=== PATIENT | male | born 1955 | race American Indian/Alaskan Native ===

== ENCOUNTER 2022-08-07 08:04 | Day surgery (SDC) | payer MEDICARE, OTHER, SELFPAY ==
--- NOTE | 2022-08-07 | PATH_ITS ---
[facility] Accession Number: [id number] No. of containers..02 Tissue . 01 Material submitted: . PART A: colon - HEPATIC FLEXURE PART B: colon - CECAL MASS BIOPSY . 01 Diagnosis: A. Hepatic Flexure, Biopsy: Tubular adenoma. . B. Cecal Mass, Biopsy: At least high-grade dysplasia, worrisome for unsampled malignancy; please see comment. MRV 08/09/2022 1438 Local . 01 Comment: B. Sections are of tubular adenoma with high-grade dysplasia evidenced by a cribriform architecture and loss of nuclear polarity. Though no definitive invasive adenocarcinoma is seen in the sampled material, luminal necrosis is present and raises the possibility of unsampled malignancy. Correlation with endoscopic and imaging findings to determine if this is associate sales representative, complete removal of the lesion, and close clinical followup are recommended. . As part of routine quality assurance auditor, Dr. Uriostegui has reviewed part B of this case, and agrees with the diagnosis of at least high-grade dysplasia. . 01 Electronically signed: . Sebastian Jacques MD, PhD, Pathologist NPI- [id number] . 01 Gross description: . Part A: HEPATIC FLEXURE: Received in formalin are 2 fragment(s) of howell, soft tissue measuring 0.6 x 0.5 x 0.5 cm to 0.7 x 0.3 x 0.3 cm submitted entirely in 1 cassette(s) Part B: CECAL MASS BIOPSY: Received in formalin are 3 fragment(s) of howell, soft tissue measuring 0.1 x 0.1 x 0.1 cm to 0.3 x 0.3 x 0.2 cm submitted entirely in 1 cassette(s) /YAYA 08/08/2022 1922 Local . 01 Pathologist provided ICD-10: R93.3, D12.3, D12.0 . 01 CPT . 153960, 573590 Specimen Comment: A courtesy copy of this report has been sent to [phone] Performed at: 01 [facility] [address] [place] [address], [place], [place] [id number] MD Colt Roa MD Phone: [phone]
[2022-08-07 08:30] VITALS: BMI 27.8
[2022-08-07 08:35] VITALS: BP 109/66; PULSE 57; RESP 20; TEMP 36.6; O2SAT 97
[2022-08-07] MEDS: LACTATED RINGERS 1,000 ML 42 ML IV (08:58)
--- NOTE | 2022-08-07 09:06 | PM.HP.1 ---
History of Present Illness History of Present Illness Date Patient Seen: 08/07/22 Time Patient Seen: 09:06 Chief complaint: Dx Colonoscopy Narrative: Personal history of colon polyps. Abnormal imaging. [facility] Social History household members: spouse Smoking Status: Never smoker alcohol intake: never Meds Home Medications and Allergies Allergies Allergy/AdvReac Type Severity Reaction Status Date / Time No Known Drug Allergies Allergy Verified 08/07/22 08:21 Review of Systems Review of Systems ROS: Yes All systems reviewed with the patient and are negative except as otherwise documented Exam Vital Signs (past 8 hours): - 08/07/22 08:35 Temperature 97.9 F Pulse Rate 57 L Respiratory Rate 20 Blood Pressure 109/66 Pulse Oximetry 97 Oxygen Delivery Method Room Air Oxygen Delivery Method Room Air Const General: cooperative HENMT Head: normal to inspection Eyes General: appearance normal, both eyes and all related structures Neck Neck: normal visual inspection Chest Chest: normal inspection of the chest Resp Effort & Inspection: normal respiratory effort Cardio Rate: regular rate GI Inspection: normal to inspection Skin General: no rashes or lesions noted Neuro General: patient alert and patient awake Extrem General: normal to inspection and no pedal edema Psych Appearance: grossly normal Assessment & Plan Assessment & Plan narrative: 67-year-old male with personal history of colon polyps and abnormal imaging concerning for cecal mass lesion. Colonoscopy is pursued today.
--- NOTE | 2022-08-07 09:07 | PM.PREOP ---
Pre-operative Note Interval Note History & Physical reviewed/Exam performed by Physician: Yes Changes to H&P: No ASA Class (for procedural sedation): II
--- NOTE | 2022-08-07 10:13 | P.OP.COLON_ITS ---
Operative Date/Time/Diagnoses Date of procedure: 08/07/22 Time of procedure: 10:14 Pre-op diagnosis: Abnormal imaging, personal history of colon polyps. Post-op diagnosis: same Procedure & Clinicians Study performed: Colonoscopy with hot snare polypectomy cold snare polypectomy and biopsies. Same procedure as scheduled: Yes Indications: Abnormal imaging, personal history of colon polyps. Surgeon: Cameron Albarran Procedure Notes SCOAP/Timeout: Done Procedure in detail: After the risks and benefits were explained, written and verbal informed consent was obtained. The patient was brought into the procedure room and placed into the left lateral decubitus position. Please see anesthesia notes for sedation details. Digital rectal examination was accomplished. The scope was introduced into the patient and advanced under direct visualization to the cecum as identified by the appendiceal orifice and ileocecal valve. The scope was slowly withdrawn to carefully examine the mucosa for any defects or lesions. Comp rehensive imaging was accomplished throughout the rectum including the dentate line. The colon was decompressed, the scope was then removed from the patient who tolerated the procedure well. Bowel prep poor Adult colonoscope Scope withdrawal time: 10 minutes Sedation minutes: 21 Complications: none Impression: Prep conditions were suboptimal. There were several areas throughout the colon obscured by fibrous retained stool debris. At the hepatic flexure there was an approximately 7-8 mm sessile polyp removed with hot snare and a diminutive 3-4 mm polyp removed with cold snare. There were a number of sessile polyps associated with the ileocecal valve. There was an additional ulcerated fungating irregular mass lesion identified filling up the lumen of the cecum. Multiple biopsies of this cecal mass were acquired. I could quite easily identify the ileocecal valve and therefore did not feel compelled to place a tattoo. I did visualize a tattoo that has obviously previously been placed at prior colonoscopies. This was in the left colon likely near the splenic flexure but has nothing to do with the mass lesion. Endoscopic diagnosis 1. Cecal mass lesion 2. Multiple colon polyps Post-procedure Plan for aftercare: 1. Await histopathology. 2. CEA level will be requested 3. Updated CT imaging will be requested. 4. Surgery and Oncology consultation are recommended. Disposition: PACU
[2022-08-07 10:17] VITALS: BP 87/62; PULSE 69; RESP 14; TEMP 36.2; O2SAT 96
[2022-08-07 10:21] VITALS: BP 90/62; PULSE 72; RESP 20; O2SAT 97
--- NOTE | 2022-08-07 10:24 | SUR.PHASEII ---
Pt to wait with spouse in conference room for conversation with
[2022-08-07 10:28] VITALS: BP 98/71; PULSE 51; RESP 16; O2SAT 98
== END 2022-08-07 10:39 | disposition home or self-care (01) ==
PROVIDERS: PCP Nurse Practitioner; Referring Provider Internal Medicine Gastroenterology; Visit Provider Internal Medicine Gastroenterology
PROC: 0DJD8ZZ Inspection of Lower Intestinal Tract, Via Natural or Artificial Opening Endoscopic (ICD-10-PCS; CPT 45378; principal; 2022-08-07 09:30)
DX: Z12.11 Encounter for screening for malignant neoplasm of colon (principal); Z86.010 Personal history of colon polyps; R93.3 Abnormal findings on diagnostic imaging of other parts of digestive tract; K86.3 Pseudocyst of pancreas; D12.3 Benign neoplasm of transverse colon; D12.0 Benign neoplasm of cecum
CPT/HCPCS: 45385; 45380; J2704

== ENCOUNTER → 2022-08-16 11:45 | Outpatient (CLI) | payer MEDICARE, OTHER, SELFPAY ==
[2022-08-16 12:24] LABS: Add Manual Diff / Slide Review NO; Basophils Absolute Auto 0 /uL (0-100); Basophils Percent Auto 0.7 % (0-2); Eosinophils Absolute Auto 200 /uL (0-450); Eosinophils Percent Auto 3.3 % (2-4); Hematocrit 34.5 % (41-53); Hemoglobin 11.4 g/dL (13.5-17.5); Lymphocytes Absolute Auto 1000 /uL (1100-4500); Lymphocytes Percent Auto 20.5 % (25-40); Mean Corpuscular Hemoglobin 27.6 PG (26-34); Mean Corpuscular Volume 83.6 fL (80-100); Monocytes Absolute Auto 300 /uL (0-900); Monocytes Percent Auto 6.5 % (3-14); Neutrophils Absolute Auto 3500 /uL (1500-7000); Platelet Count 277 X10^3/uL (150-400); Red Blood Cell Count 4.12 X10^6/uL (4.5-5.9); Red Cell Distribution Width 15.1 % (11.6-14.8)
[2022-08-16 13:00] LABS: Alanine Aminotransferase 22 IU/L (<50); Albumin Globulin Ratio 1.1 (1.0-2.8); Alkaline Phosphatase 121 U/L (38-126); Aspartate Aminotransferase 24 IU/L (17-59); BUN Creatinine Ratio 8.7 (6-22); Bilirubin Total 0.4 mg/dL (0.2-1.3); Blood Urea Nitrogen 8 mg/dL (9-20); Calcium 8.2 mg/dL (8.4-10.2); Carbon Dioxide 26 mmol/L (22-32); Chloride 106 mmol/L (98-107); Estimated Glomerular Filt Rate > 60 mL/min (>60); Globulin 3.8 g/dL (1.7-4.1); Glucose 104 mg/dL (80-110); HEMOLYSIS < 15 (0-50); Lipase 99 U/L (23-300); Potassium 3.6 mmol/L (3.4-5.1); Sodium 140 mmol/L (137-145); Total Protein 7.8 g/dL (6.3-8.2)
== END ==
PROVIDERS: PCP Nurse Practitioner; Referring Provider Surgery; Visit Provider Surgery
DX: K63.89 Other specified diseases of intestine (principal)
CPT/HCPCS: 36415; 80053; 82378; 83690; 85025; 99214

== ENCOUNTER → 2022-08-18 12:51 | Outpatient (CLI) | payer MEDICARE, OTHER, SELFPAY ==
--- NOTE | 2022-08-18 12:53 | DI.CT.S_ITS ---
PROCEDURE: CT CHEST ABD PEL W CON INDICATIONS: Cecal mass TECHNIQUE: After the administration of oral and intravenous contrast, axial sections acquired from the supraclavicular neck to the pubic symphysis. Coronal and sagittal reformats were performed. For radiation dose reduction, the following was used: automated exposure control, adjustment of mA and/or kV according to patient size. COMPARISON: None. FINDINGS: Image quality: Good. CHEST: Lower Neck: No enlarged lymph nodes. Thyroid: Within normal limits. Axillae: No enlarged lymph nodes. Chest Wall: Probable left gynecomastia. Lungs and Airways: Left cardiophrenic angle nodule measuring 0.8 cm, (5/215). Mild atelectasis. Airways are clear. Pleura: No pneumothorax or pleural effusions. Heart: Heart size is normal. No pericardial effusion. Thoracic Vessels: The aorta and pulmonary arteries demonstrate normal size. Mediastinum and Laura: No enlarged lymph nodes. Esophagus: No wall thickening. No hiatal hernia. ABDOMEN: Liver: Multiple hepatic cysts. Enhancing focus at the dome of the liver, (2/41). Gallbladder: Distended. Biliary ducts: Intrahepatic and extrahepatic biliary ductal dilatation. The extrahepatic duct measures approximately 1.9 cm. Pancreas: Atrophic. Nodular tissue in the region of the expected head of the pancreas. There are 1 or 2 trans gastric stents extending from the gastric body to the region of the tail the pancreas. There is stranding in the region of the pancreas. Spleen: No splenomegaly. Adrenal Glands: No nodule. Kidneys and Ureters: No hydronephrosis. Stomach and Bowel: Suspected cecal mass measures approximately 3.6 cm in length, (3/29). The appendix is dilated up to 1.6 cm. Diverticulosis. No small bowel obstruction. Stomach is decompressed. Peritoneum: No abnormal intraperitoneal fluid. No free air. Ventral Wall: No hernia. Abdominal Nodes: Suspicious in pericecal lymph nodes. For example a node with a short axis diameter 1.1 cm, (2/72); and 1 cm, (2/70). Vessels: No abdominal aortic aneurysm. The portal vein is attenuated near the SMV confluence. There are upper abdominal varices. Celiac and SMA are patent. Hepatic artery is replaced to the SMA. IVC is diminutive. PELVIS: Pelvic Organs: Prostatomegaly. Right bladder diverticulum. Bladder: Unremarkable. Pelvic Nodes: No enlarged lymph nodes. Miscellaneous: Bilateral fat containing inguinal hernias. Bones: No suspicious lesion. IMPRESSION: 1. Suspected cecal mass measures approximately 3.6 cm in length. Suspicious pericecal lymph nodes. 2. Numerous hepatic cysts. Tiny enhancing focus at the dome of the liver. MRI should be considered for further evaluation to exclude metastatic disease in the liver. 3. Left lower lobe pleural nodule measuring 0.8 cm. Indeterminate. Recommend follow-up chest CT in 6 months. 4. Atrophic pancreas with adjacent transgastric drains. Stranding about the pancreas. Findings most consistent with prior pancreatitis. Portal vein confluence is attenuated. Multiple varices in the upper abdomen. 5. Prostatomegaly. Suspect bladder outlet obstruction with bladder diverticulum. Dictated by: Derek Pace M.D. on 08/18/2022 at 16:35 Approved by: Derek Pace M.D. on 08/18/2022 at 16:58
== END ==
PROVIDERS: PCP Nurse Practitioner; Referring Provider Surgery; Visit Provider Surgery
DX: K63.89 Other specified diseases of intestine (principal); K76.89 Other specified diseases of liver; R91.1 Solitary pulmonary nodule; K86.89 Other specified diseases of pancreas; I86.8 Varicose veins of other specified sites; N40.0 Benign prostatic hyperplasia without lower urinary tract symptoms; N32.3 Diverticulum of bladder
CPT/HCPCS: 71260; 74177; Q9967

== ENCOUNTER 2022-09-19 06:12 | Inpatient (IN) | payer MEDICARE, OTHER, SELFPAY ==
[2022-09-13 08:43] VITALS: BMI 27.8
[2022-09-19] VITALS (24 sets, daily range): BP systolic 101–128; BP diastolic 56–78; PULSE 57–101; RESP 12–19; TEMP 36.4–36.8; O2SAT 92–99; BMI 27.8
--- NOTE | 2022-09-19 | PATH_ITS ---
[facility] Accession Number: [id number] No. of containers..02 Tissue . 01 Material submitted: . PART A: liver - LIVER LESION PART B: colon - RIGHT COLON,TERMINAL ILEUM, AND APPENDIX . 01 Diagnosis: A. Liver Lesion, Biopsy: Benign sclerotic nodule, 5 mm. Negative for cirrhosis/regenerative nodules on trichrome stain. No evidence of malignancy. Additional step sections examined. . B. Right Colon with Appendix, Right Hemicolectomy: Invasive adenocarcinoma; see cancer case summary and comment. . . CANCER CASE SUMMARY - COLON AND RECTUM Specimen Procedure: Right hemicolectomy. Tumor Tumor site: Cecum, ileocecal valve, appendix, and terminal ileum. Histologic type: Adenocarcinoma. Histologic grade: G2, moderately differentiated. Tumor size: 7.2 cm in greatest dimension. Multiple primary sites: Not applicable. Tumor extent: Invades through muscularis propria into pericolonic tissue. Macroscopic tumor perforation: Not identified. Lymphovascular invasion: Present (not otherwise specified). Perineural invasion: Not identified. Treatment effect: No known presurgical therapy. Margins Margin status for invasive carcinoma: All margins negative for invasive carcinoma. Closest margin to invasive carcinoma: Radial/circumferential. Distance from invasive carcinoma to closest margin: 1 mm. Margin status for noninvasive tumor: All margins negative for dysplasia. . Regional lymph nodes Regional lymph node status: Regional lymph nodes present. Tumor present in regional lymph nodes. Number of lymph nodes with tumor: Two. Number of lymph nodes examined: Eight. Tumor deposits: Present. Number of tumor deposits: Two. Pathologic stage classification (pTNM, AJCC 8th Edition) TNM descriptors: Not applicable. PT category: pT3 PN category: pN1b Additional findings: Adenomas. Special studies: . IMMUNOHISTOCHEMISTRY TESTING FOR MISMATCH REPAIR PROTEINS: . MLH1: Intact nuclear expression. MSH2: Intact nuclear expression. MSH6: Intact nuclear expression. PMS2: Intact nuclear expression. Background nonneoplastic tissue/internal control with intact nuclear expression. . INTERPRETATION: No loss of nuclear expression of MMR proteins: low probability of microsatellite instability-high (MSI-H)* . * There are exceptions to the above IHC interpretations. These results should not be considered in isolation, and clinical correlation with genetic counseling is recommended to assess the need for germline testing. MRV 09/28/2022 [facility]0 Local . 01 Comment: Multiple areas of serosal adhesion are identified grossly. Carcinoma is present approximating (within 1 mm) the areas of interest, but no carcinoma is identified at the inked surface. By convention this is staged as pT3. . As part of routine vendor quality supervisor, Dr. Uriostegui has reviewed retail account representative sections (blocks A1 and B5), and agrees with the diagnosis above. . 01 Electronically signed: . Sebastian Jacques MD, PhD, Pathologist NPI- [id number] . 01 Gross description: . A. Received in formalin, labeled with the patient's name, , and liver lesion, and consists of two irregular, roughened, friable, howell soft tissue fragments with no grossly identifiable margin. The first measures 1.7 x 1.0 x 0.5 cm and is inked black. The second fragment measures 0.7 x 0.6 x 0.3 cm and is inked orange. The first fragment is serially sectioned, and the specimen is submitted entirely in cassettes A1-A2. B. Received in formalin, labeled with the patient's name, , and R colon, terminal ileum, appendix, and consists of a right hemicolectomy with a fragment of ileum measuring 7.6 cm in length by 2.6 cm in average diameter. The segment of colon measures 14.9 cm in length by 5.5 cm in average diameter with attached adipose extending out to 4.8 cm. The attached appendix is congested and measures 5.9 cm in length by 2.2 cm in average diameter. The ileal and colonic serosa is howell and smooth with no areas of puckering grossly identified. The serosa of the appendix is diffusely hemorrhagic. An area of firm adipose is identified at the approximate area of the ileocecal valve. The ileal margin is inked blue. The colonic margin is inked black. The mesenteric margin is inked green. The appendiceal serosa and area of firm adipose is inked orange. An area of roughened adipose adjacent to the cecum is identified and is inked red. A roughened area on the serosa is identified on the ileum measuring 3.2 cm in greatest dimension and is inked black (this area is distinct and separate from the black-inked colonic margin). Opening the specimen reveals the lumen to be filled with bright red, gelatinous, hemorrhagic material. The mucosa is significant for a exophytic, ulcerated lesion within the cecum and is also identified within the appendix. The lesion measures 7.2 cm from the cecum into the appendix and 6.4 x 4.6 cm within the cecum. The friable lesion grossly extends beyond the bowel wall to the edge of the orange-inked adipose. The lesion grossly approximates the green-inked mesenteric margin adjacent to the ileocecal valve. The lesion grossly extends from the cecum, through the adjacent adipose, and is visualized in the mucosa of the ileum. The lesion is grossly free from the blue-inked ileal margin and the black-inked colonic margin. The lesion measures 0.6 cm from the red-inked roughened area consistent with cecal adhesion to the abdominal wall and measures 2.5 cm from the black-inked roughened area of presumed adhesion on the ileum. The lesion also grossly extends into the ileocecal valve. The remaining colonic mucosa is significant for four exophytic polypoid structures ranging from 0.7 cm to 2.1 cm in greatest dimension and grossly free from all margins. The mucosa is also significant for a dusky, ill-defined area measuring approximately 4.5 x 3.5 cm and is located 1.5 cm from the nearest colonic margin, possibly consistent with previous biopsy sites. Otherwise, the mucosa is howell and velvety with slightly edematous folds. The mcrae average 0.3 cm thick with no diverticula grossly identified. Palpation of the adipose reveals 15 howell lymph node candidates ranging from 0.1 cm to 1.1 cm in greatest dimension. Line Closer sections are submitted as follows: B1: Ileal margin en face. B2: Colon margin en face. B3-B6: Composite longitudinal section from cecum to tip of the appendix. B7: Lesion to orange-inked surface. B8-B9: Composite lesion from colon to ileum. B10: Lesion to red-inked area of adhesion. B11: Perpendicular lesion to green-inked mesenteric margin. B12: Lesion to normal. B13: Lesion to ileocecal valve. B14-B16: Single retail account representative sections of four mucosal polyps. B17: Dusky serosa. B18: Normal ileum and black-inked adhesed area. B19: Line Closer normal ileocecal valve. B20-B21: Normal colon. B22: Section of single lymph node candidate. B23: Section of four distinct lymph node candidates. B24: Three intact lymph node candidates. B25: Three intact lymph node candidates. B26: Four intact lymph node candidates. ([id number]) /FRR 09/28/2022 1715 Local . 01 Microscopic: . A. A trichrome stain is performed to evaluate for fibrosis, and highlights rare bridging fibrosis without regenerative nodules/cirrhosis identified. The presence of bridging type fibrosis can be seen in subcapsular liver, and may also be explained by mass effect. The sclerotic nodule is reactive on trichrome stainn, consistent with a fibrotic nodule. A control stain shows appropriate reactivity. . B. DNA mismatch repair proteins show intact nuclear immunoreactivity. Controls stains show appropriate reactivity. . * This test was developed and its performance characteristics determined by [employer]. It has not been cleared or approved by the U.S. Food and Drug Administration. The FDA has determined that such clearance or approval is not necessary. This test is used for clinical purposes. It should not be regarded as investigational or for research. . 01 Pathologist provided ICD-10: C18.9 . 01 CPT . 885856, 502636, A99549, V04308, 043178 Specimen Comment: A courtesy copy of this report has been sent to [phone] Performed at: 01 [facility] [address] [place] [address], [place], [place] [id number] MD Colt Roa MD Phone: [phone]
[2022-09-19] MEDS: LACTATED RINGERS 1,000 ML 42 ML IV ×4 (07:11→12:17)
--- NOTE | 2022-09-19 07:50 | P.HP_ITS ---
History of Present Illness History of Present Illness Date Patient Seen: 09/19/22 Time Patient Seen: 07:51 Chief complaint: Right Lap Hemicolectomy Narrative: Bo is a 67-year-old man with a right colon mass. See the office note for details. Path came back as high-grade dysplasia but there is concern for invasive adenocarcinoma. 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 He has had an endoscopic cyst gastrostomy. He is here for his right hemicolectomy. 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) Surgical History (Updated 09/13/22 @ 09:05 by Clara Blair RN) H/O gastrostomy, has currently (04/2022) Hx of colonoscopy (08/07/22) Family History (Updated 08/25/22 @ 23:56 by Margo Reyes MD) Brother Cancer Social History household members: spouse Smoking Status: Never smoker alcohol intake: current Meds Home Medications and Allergies Home Medications Medication Instructions Recorded Confirmed Type No Known Home Medications 08/16/22 09/13/22 History Allergies Allergy/AdvReac Type Severity Reaction Status Date / Time No Known Drug Allergies Allergy Verified 09/19/22 06:55 Exam Vital Signs (past 8 hours): - 09/19/22 07:05 Temperature 97.9 F Pulse Rate 57 L Respiratory Rate 12 Blood Pressure 102/69 Pulse Oximetry 97 Oxygen Delivery Method Room Air Oxygen Delivery Method Room Air Const General: comfortable and No acute distress Assessment & Plan Assessment and plan (1) High grade dysplasia in colonic adenoma: Status: Acute Plan We reviewed the plan of laparoscopic assisted right hemicolectomy. Explained that there is a possibility we would have to convert to an open procedure if he has a lot of adhesions from his pancreatitis. There is also possibility that we would have to perform a diverting loop ileostomy if he has poor perfusion. He would like to proceed.
[2022-09-19] MEDS: AMPICILLIN/SULBACTAM 3 GM 3 GM in SODIUM CHLORIDE 0.9% 100 ML IV (07:58)
[2022-09-19] MEDS: ACETAMINOPHEN IV 1,000 MG/100 ML VIAL 400 MG IV (08:06)
--- NOTE | 2022-09-19 08:28 | SUR.OPER ---
Supine on padded OR bed, head on pillow, right arm secured on padded arm board at <90 degrees abduction, left arm padded and tucked at side, legs uncrossed, safety belt at thigh, tape over blanket over lower legs. [place] Pad Positioner under torso.
[2022-09-19] MEDS: BUPIVACAINE LIPOSOME 266 MG/20 ML VIAL INJ (08:36)
[2022-09-19] MEDS: EPINEPHrine 1 MG/ML 0.15 MG INJ (08:37)
[2022-09-19] MEDS: BUPIVACAINE 0.5% (PF) 10 ML VIAL 30 ML INJ (08:38)
--- NOTE | 2022-09-19 13:08 | P.OP_ITS ---
Operative Date/Time/Diagnoses Date of procedure: 09/19/22 Time of procedure: 13:08 Pre-op diagnosis: Right colon mass Post-op diagnosis: same Procedure & Clinicians Procedure: Laparoscopic-assisted right hemicolectomy and liver biopsy Same procedure as scheduled: Yes Surgeon: Carlos Berrios Diesel Mechanic Construction: Cm Lopez Anesthesia Type: General Operative Notes Procedure in detail: Operation: Laparoscopic assisted right hemicolectomy and lysis of adhesions Surgeon: Mary LEWIS Diesel Mechanic Construction: Cm ELIZABETH provided assistance with exposure as well as creation of the anastomosis. Anesthesia: General endotracheal anesthesia The patient is a 67-year-old man who had a right colon mass that was biopsied by Dr. Albarran with findings of high-grade dysplasia concern for invasive cancer. He was consented for a laparoscopic assisted right hemicolectomy. Unasyn was administered. The patient was brought to the operating room and placed on the table in the supine position. General endotracheal anesthesia was induced. A Albarado catheter was placed. The abdomen was prepped and draped in the usual fashion and a time-out was performed. A 1 cm supraumbilical midline incision was created. Dissection was carried down to the fascia which was scored in the midline with cautery. The peritoneum was pierced with a Peon clamp. A Sheba port was placed and the abdomen was insufflated to 15 mmHg. The camera was inserted and there was no evidence of any injury from the entry. 5 mm ports were placed in the left upper quadrant, left lower quadrant, right upper quadrant, right lower quadrant and subxiphoid position under direct vision. We explored the abdomen. There were rather significant adhesions of the omentum to the upper midline abdominal wall which were taken down under direct vision with hot scissors. There was evidence that there was a rather large mass in the cecum which was adherent to the anterior abdominal wall. The appendix appeared quite dilated. There was a 2 cm circular white mass along the lateral inferior edge of the right liver. We started by dissecting the cecum from the attachments to the anterior abdominal wall by removing the peritoneum with the specimen. The terminal ileum was adherent to the right lower pelvic sidewall and was carefully dissected staying in the natural cleavage plane. We dissected until we had good mobilization of the terminal ileum. We then took down the omental adhesions to the gallbladder fossa until we could clearly see 1st portion the duodenum. We carefully dissected the right transverse mesocolon off of duodenum staying in the natural cleavage plane. The tissue planes were rather distorted presumably because of the patient's prior history of pancreatitis. There was also a lot of neovascularization around the right colon. We then took down the hepatic flexure and the right colon in the same plane. We then mobilized the cecum and the mesentery to the terminal ileum off of the sidewall. Once the bowel was sufficiently mobilized we removed the laparoscopic equipment and created a 7 cm supraumbilical incision. A medium Bishnu retractor was placed into the wound however we could not completely extract the specimen because of the bulkiness of the cecal mass so we increased the incision to 9 cm and used a large Bishnu. We then were able to exteriorize the mass. It appeared that there were some large palpable lymph nodes in the mesentery. We then created mesenteric windows along the mesenteric border of terminal ileum and another along the proximal transverse colon just proximal to right branch of the middle colic artery. We then lined up the terminal ileum and transverse colon and a 3-0 silk stitch was placed at the crotch. Blue towels were placed around the bowel and enterotomies were created. A [id number] functional end-to-end anastomosis was created using the 75 mm linear AD stapler with blue loads. The power seal was used to take down most of the mesentery up to the ileocolic pedicle. The ileocolic pedicle was tied with 2 0 silk ties. Multiple interrupted 3-0 silk sutures were used to imbricate the anastomotic staple line. The anastomosis appeared well perfused and patent and allowed to fall back into the right abdomen. We then removed the liver lesion with a combination of hot scissors and the power seal device and sent it as ?liver lesion?. We then transition to a clean closure and injected Exparel into the plane above and below the fascia. The fascia was then closed with a running 0 PDS suture. The skin incisions were closed with krzysztof. EBL: 50 mL Specimen: Terminal ileum and right colon and liver lesion Post-operative Condition: stable Disposition: PACU
[2022-09-19] MEDS: LACTATED RINGERS 1,000 ML 100 ML IV ×2 (14:23→18:19)
[2022-09-19] MEDS: ACETAMINOPHEN 325 MG TABLET 650 MG PO (17:11)
[2022-09-19] MEDS: IBUPROFEN 600 MG TABLET PO (17:12)
[2022-09-19 19:02] LABS: MRSA (Nasal) PCR Not Detected (Not Detect)
[2022-09-19] MEDS: HYDROCODONE/ACET 5/325 TABLET 1 TAB PO (20:09)
[2022-09-19] MEDS: HYDROCODONE/ACET 5/325 TABLET 2 TAB PO (23:49)
[2022-09-20] VITALS (10 sets, daily range): BP systolic 111–133; BP diastolic 61–73; PULSE 68–80; RESP 16–18; TEMP 36.6–37; O2SAT 89–95
[2022-09-20] MEDS: LACTATED RINGERS 1,000 ML 100 ML IV ×2 (04:21→12:01)
[2022-09-20 05:03] LABS: Add Manual Diff / Slide Review NO; Basophils Absolute Auto 0 /uL (0-100); Eosinophils Absolute Auto 0 /uL (0-450); Hematocrit 29.2 % (41-53); Hemoglobin 9.7 g/dL (13.5-17.5); Lymphocytes Absolute Auto 700 /uL (1100-4500); Lymphocytes Percent Auto 6.3 % (25-40); Mean Corpuscular HGB Conc 33.1 % (30-36); Mean Corpuscular Hemoglobin 26.4 PG (26-34); Mean Corpuscular Volume 79.8 fL (80-100); Monocytes Absolute Auto 800 /uL (0-900); Monocytes Percent Auto 7.1 % (3-14); Neutrophils Absolute Auto 9800 /uL (1500-7000); Neutrophils Percent Auto 86.6 % (50-75); Platelet Count 213 X10^3/uL (150-400); Red Blood Cell Count 3.66 X10^6/uL (4.5-5.9); Red Cell Distribution Width 16.5 % (11.6-14.8); White Blood Cell Count 11.3 X10^3/uL (4.5-11.0)
[2022-09-20 05:12] LABS: BUN Creatinine Ratio 14.5 (6-22); Blood Urea Nitrogen 11 mg/dL (9-20); Calcium 7.7 mg/dL (8.4-10.2); Carbon Dioxide 27 mmol/L (22-32); Chloride 106 mmol/L (98-107); Estimated Glomerular Filt Rate > 60 mL/min (>60); Glucose 124 mg/dL (80-110); HEMOLYSIS < 15 (0-50); Potassium 3.8 mmol/L (3.4-5.1); Sodium 138 mmol/L (137-145)
[2022-09-20] MEDS: HYDROCODONE/ACET 5/325 TABLET 2 TAB PO ×3 (08:24→21:14)
--- NOTE | 2022-09-20 09:18 | CM.DANOTE ---
DCP: Patient is a 67yo M here post op from colon surgery. Payer: Medicare and for Life PCP: Dr. Lacey Garcia From nurse, patient is walking around and doing well. They are hopeful they will be able to advance his diet later today. Potentially dc tomorrow if all goes well. POCKET MAKER entered room and introduced self and role. Patient was A/Ox4 and was resting. Patient reported he lives at home in [place] with his , Aspen ([phone]). Patient reports he is independent with ADLs at baseline and drives his own vehicle. 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 Patient reports that his is able to help him with extra needs he may have while recovering. She is able to transport him home from . Plan: patient will d/c home when medically stable and transport with in POV. CM team will continue to follow for additional needs. COLIN Galdamez. Discharge Planning/Care Management CM Discharge Assessment Start: 09/20/22 09:16 Freq: Status: Active Protocol: Document 09/20/22 09:16 (Rec: 09/20/22 09:18 [id number]) Discharge Planning Assessment Assigned Resident Caregiver COLIN Galdamez DPOA/Assigned Designee Name Aspen Demarco () Contact Information [phone] Advance Directives? No History Provided By Patient,Medical Record Prior Living Arrangements Apartment/Condo Household Members spouse Type of transporation used prior to Drives own vehicle admit Independent with ADL's Yes Is patient alert and oriented? Yes Caregiver for Another No Discharge Plan Home Transportation Arrangement family in POV Whiteboard Updated in Patient Room with Yes name and ext. # of Resident Caregiver Review Status In Process Next Review Type Continued Stay Review Pre-Anesthesia Assessment Start: 09/13/22 08:43 Freq: Status: Complete Protocol: Document 09/13/22 08:43 CAB (Rec: 09/13/22 09:14 CAB [id number]) Pre-Anesthesia Assessment Patient Information Reviewed Via Phone Assessment Assessment Completed With Patient Seen Specialist in Last 12 Months Yes Specialist Seen General surgeon,Oncologist Primary Language Kazakh Live Ammunition Inspector Required No Height 180.34 cm Weight 90.718 kg Body Mass Index (BMI) 27.8 Hearing Ability Normal Visual Assist Glasses Dentition Type Full- Upper Barriers to Learning None Hx Anesthesia Reactions No Hx Family Anesthesia Reaction No Hx Malignant Hyperthermia No Hx Blood Transfusions No Hx Blood Transfusion Reaction No Anesthesia Review Requested No Vrt Mechanic No alcohol intake current alcohol intake frequency holidays/special occasions only Smoking Status Never smoker Substance Use Type does not use Pain Present Pain Reported History of Falling (Recent or History of No ) Patient is completely paralyzed or No completely immobile Mental Status Oriented to own ability Is patient on oxygen? No Does patient have MATHIAS/SOB No Hx Sleep Apnea No Currently Taking a Beta [place] No Can You Climb a Flight of Stairs Without Yes SOB Hx Chest Pain No Hx SOB No Hx Syncope or Dizziness No Anti-Coagulant Therapy No Has a On Car Supervisor No Cardiac Testing No Hx Pacemaker/ICD No Pacemaker Rep Required? No Cardiac Clearance Received Not Applicable Diet Type At Home Regular Dysphagia No Gastrointestinal Symptoms Abdominal Pain,Change in Stool Characteristics,Reflux Chronic UTI No Urinary Catheter Present No Hx Urinary Self Catheterization No Diabetes No Hx Drug Resistant Organism No Presence of External or Internal Medical Yes: abdominal stent Devices Have you had any close contact with No someone diagnosed with COVID-19? Received a COVID vaccine? Yes Received all doses? Yes Marital Status Lives With spouse Current Living Arrangements Apartment/Condo Number of Stairs To Enter/Railing? 1 flight Support System Spouse Does the Patient Have Assistance After Yes Surgery Patient Discharge Plan Description Return Home Comment Pt advised 2-3 day length of stay per surgeon Feels Safe in Current Environment Yes Been Physically Hurt or Threatened By a No Person in Current Environment Do you have thoughts of harming yourself None or others? Are you currently considering suicide? No Do you have a plan to hurt yourself or No Plan others? Do You Have Any Spiritual Beliefs That No May Affect Your HC Choices? Do You Have Any Cultural Practices That No May Affect Your HC Choices? Who Can We Speak to About Patient's Care Family, friends Identifying Code for Release of Patient Declines to issue Information Health Care Proxy/Next of Kin Aspen () Health Care Proxy Emergency Contact Name Aspen () Emergency Contact Advance Directives? No Power of Home Organizer No PAC Instructions Medications to take/avoid,No ETOH/petroleum product on skin DOS,NPO,Post-op transportation,Pre-surgical wash,Sensory aids,Sturdy shoes /comfortable clothes,Do not bring valuables and remove jewelry
--- NOTE | 2022-09-20 14:14 | P.PN_ITS ---
Subjective Subjective Date Patient Seen: 09/20/22 Time Patient Seen: 14:14 Interval history: No complaints. He has passed some gas. He has tolerated clear liquid diet. He has ambulated today. Exam Vital Signs (past 8 hours): - 09/20/22 08:44 09/20/22 08:52 09/20/22 12:13 Temperature 97.8 F 98.6 F Pulse Rate 72 80 Respiratory Rate 16 17 Blood Pressure 124/73 133/61 Pulse Oximetry 95 94 Oxygen Delivery Method Room Air Oxygen Flow Rate 0 0 Oxygen Delivery Method Room Air Oxygen Flow Rate 0 Const General: No acute distress Resp Effort & Inspection: normal respiratory effort Objective Labs 09/20/22 04:25 09/20/22 04:25 Labs: Laboratory Results - last 24 hr 09/19/22 09/20/22 09/20/22 14:22 04:25 04:25 WBC 11.3 H RBC 3.66 L Hgb 9.7 L Hct 29.2 L MCV 79.8 L MCH 26.4 MCHC 33.1 RDW 16.5 H Plt Count 213 Neut % (Auto) 86.6 H Lymph % (Auto) 6.3 L [place] % (Auto) 7.1 Eos % (Auto) 0.0 L Baso % (Auto) 0.0 Neut # (Auto) 9800 H Lymph # (Auto) 700 L [place] # (Auto) 800 Eos # (Auto) 0 Baso # (Auto) 0 Sodium 138 Potassium 3.8 Chloride 106 Carbon Dioxide 27 BUN 11 Creatinine 0.76 Estimated GFR > 60 BUN/Creatinine Ratio 14.5 Glucose 124 H Calcium 7.7 L Nasal Screen MRSA (PCR) Not detected [facility] Medical History (Updated 09/19/22 @ 07:53 by Carlos Berrios MD) GERD (gastroesophageal reflux disease) 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
[2022-09-20] MEDS: ENOXAPARIN 40 MG/0.4 ML SYRINGE SUBCUT (14:31)
[2022-09-20] MEDS: IBUPROFEN 600 MG TABLET PO ×2 (15:13→21:13)
[2022-09-20] MEDS: ONDANSETRON 4 MG/2 ML INJ IV (17:25)
[2022-09-20] MEDS: HYDROCODONE/ACET 5/325 TABLET 1 TAB PO (19:03)
[2022-09-20] MEDS: METOCLOPRAMIDE 10 MG/2 ML INJ IV (20:37)
[2022-09-21] VITALS (11 sets, daily range): BP systolic 92–123; BP diastolic 59–81; PULSE 75–93; RESP 16–19; TEMP 36.2–36.6; O2SAT 86–93
--- NOTE | 2022-09-21 00:09 | DI.RAD.S_ITS ---
PROCEDURE: XR ABDOMEN 1V INDICATIONS: NG tube placement verification TECHNIQUE: One view of the abdomen acquired. COMPARISON: [facility], CT, CT CHEST ABD PEL W CON, 08/18/2022, 15:26. FINDINGS: Surgical changes and devices: There is a new nasogastric tube extending into the stomach. There are pigtail drainage catheters redemonstrated in the left upper quadrant consistent with transgastric drains seen on prior CT. Bowel: The visualized upper abdomen demonstrates multiple dilated small bowel loops measuring up to approximately 5.1 cm. Soft tissues: No suspicious abdominal calcifications. There are surgical krzysztof projecting over the bilateral abdomen. Bones: No suspicious bony lesions. IMPRESSION: 1.Nasogastric tube extends into the stomach. 2. Multiple dilated small bowel loops within the visualized abdomen consistent with an ileus or obstruction. Dictated by: Colt Trinidad M.D. on 09/21/2022 at 0:49 Approved by: Colt Trinidad M.D. on 09/21/2022 at 0:53
--- NOTE | 2022-09-21 02:46 | PC.NURSE ---
Pt vomited approx 500 mL at approx 1945. Provider notified and orders rec'd for reglan since zofran wasn't effective. In addition, pt was made NPO. Administered reglan but pt continued to vomit copious amounts of liquid. BS distant and hypo. Abdomen firm and distended, but no tenderness. Provider notified and orders rec'd for ng tube, abdominal xray for confirmation of placement, and low intermittent suction. IV analgesics ordered while ng in place. Pt reported having several broken noses and placement was challenging. Ultimately a 14 fr NG tube was placed at 65 cm. X ray confirmed placement. A liter of dark gi contents was immediately suctioned out, followed by a slower, steady flow.
[2022-09-21] MEDS: HYDROMORPHONE 0.5 MG INJ 0.25 MG IV ×5 (05:25→20:45)
[2022-09-21] MEDS: ENOXAPARIN 40 MG/0.4 ML SYRINGE SUBCUT (09:47)
[2022-09-21] MEDS: LACTATED RINGERS 1,000 ML 100 ML IV (10:00)
[2022-09-21 12:37] LABS: Add Manual Diff / Slide Review NO; Basophils Absolute Auto 100 /uL (0-100); Basophils Percent Auto 0.5 % (0-2); Eosinophils Absolute Auto 100 /uL (0-450); Eosinophils Percent Auto 0.7 % (2-4); Hematocrit 31.5 % (41-53); Hemoglobin 10.6 g/dL (13.5-17.5); Lymphocytes Absolute Auto 900 /uL (1100-4500); Lymphocytes Percent Auto 8.4 % (25-40); Mean Corpuscular HGB Conc 33.5 % (30-36); Mean Corpuscular Hemoglobin 26.8 PG (26-34); Monocytes Absolute Auto 800 /uL (0-900); Monocytes Percent Auto 7.4 % (3-14); Neutrophils Absolute Auto 8500 /uL (1500-7000); Platelet Count 249 X10^3/uL (150-400); Red Blood Cell Count 3.94 X10^6/uL (4.5-5.9); Red Cell Distribution Width 16.7 % (11.6-14.8); White Blood Cell Count 10.2 X10^3/uL (4.5-11.0)
[2022-09-21 13:10] LABS: BUN Creatinine Ratio 13.3 (6-22); Blood Urea Nitrogen 12 mg/dL (9-20); Carbon Dioxide 35 mmol/L (22-32); Chloride 100 mmol/L (98-107); Estimated Glomerular Filt Rate > 60 mL/min (>60); Glucose 126 mg/dL (80-110); HEMOLYSIS < 15 (0-50); Sodium 140 mmol/L (137-145)
[2022-09-21] MEDS: POTASSIUM CHLORIDE IN WATER 10 MEQ/100 ML PIGGYBACK 100 MEQ IV ×3 (15:39→18:15)
--- NOTE | 2022-09-21 15:55 | P.PN_ITS ---
Subjective Subjective Date Patient Seen: 09/21/22 Time Patient Seen: 15:55 Interval history: Bo had multiple bouts of emesis overnight and an NG-tube was placed. Initially he had quite a bit of output but it has decreased now. Today he feels better and he did have a bowel movement today. Exam Vital Signs (past 8 hours): - 09/21/22 09:08 09/21/22 08:30 Temperature 97.5 F L Pulse Rate 88 Respiratory Rate 16 Blood Pressure 111/66 Pulse Oximetry 92 Oxygen Delivery Method Room Air Oxygen Flow Rate 0 Oxygen Delivery Method Room Air Oxygen Flow Rate 0 Narrative Exam Narrative: Abdomen soft, minimal tenderness Incisions are clean and dry Objective Labs 09/21/22 11:28 09/21/22 11:28 Labs: Laboratory Results - last 24 hr 09/21/22 09/21/22 11:28 11:28 WBC 10.2 RBC 3.94 L Hgb 10.6 L Hct 31.5 L MCV 80.0 MCH 26.8 MCHC 33.5 RDW 16.7 H Plt Count 249 Neut % (Auto) 83.0 H Lymph % (Auto) 8.4 L [place] % (Auto) 7.4 Eos % (Auto) 0.7 L Baso % (Auto) 0.5 Neut # (Auto) 8500 H Lymph # (Auto) 900 L [place] # (Auto) 800 Eos # (Auto) 100 Baso # (Auto) 100 Sodium 140 Potassium 3.0 L Chloride 100 Carbon Dioxide 35 H BUN 12 Creatinine 0.90 Estimated GFR > 60 BUN/Creatinine Ratio 13.3 Glucose 126 H Calcium 8.0 L PFSH Medical History (Updated 09/21/22 @ 15:56 by Carlos Berrios MD) GERD (gastroesophageal reflux disease) 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 If he passes some more gas the NG tube can come out and he can have sips of clears and ice chips I suspect he will need at least 3 more days here all his bowel function slowly recovers. Quality VTE Deep Vein Thrombosis/Pulmonary Embolism Present on Admission: No
[2022-09-21] MEDS: POTASSIUM CHLORIDE IN WATER 10 MEQ/100 ML PIGGYBACK 80 MEQ IV (19:40)
[2022-09-22] VITALS (7 sets, daily range): BP systolic 101–118; BP diastolic 56–68; PULSE 74–87; RESP 16; TEMP 36.4–36.9; O2SAT 87–95
[2022-09-22] MEDS: LACTATED RINGERS 1,000 ML 100 ML IV ×2 (00:20→13:36)
[2022-09-22] MEDS: HYDROMORPHONE 0.5 MG INJ 0.25 MG IV ×3 (00:30→10:21)
[2022-09-22 05:37] LABS: Add Manual Diff / Slide Review NO; Basophils Absolute Auto 0 /uL (0-100); Basophils Percent Auto 0.3 % (0-2); Eosinophils Absolute Auto 100 /uL (0-450); Hematocrit 27.6 % (41-53); Hemoglobin 9.1 g/dL (13.5-17.5); Lymphocytes Absolute Auto 900 /uL (1100-4500); Lymphocytes Percent Auto 12.4 % (25-40); Mean Corpuscular Hemoglobin 26.8 PG (26-34); Mean Corpuscular Volume 81.2 fL (80-100); Monocytes Absolute Auto 600 /uL (0-900); Monocytes Percent Auto 7.3 % (3-14); Neutrophils Absolute Auto 5900 /uL (1500-7000); Platelet Count 205 X10^3/uL (150-400); Red Cell Distribution Width 16.9 % (11.6-14.8); White Blood Cell Count 7.6 X10^3/uL (4.5-11.0)
[2022-09-22 05:48] LABS: BUN Creatinine Ratio 12.8 (6-22); Blood Urea Nitrogen 11 mg/dL (9-20); Calcium 7.7 mg/dL (8.4-10.2); Carbon Dioxide 35 mmol/L (22-32); Chloride 102 mmol/L (98-107); Estimated Glomerular Filt Rate > 60 mL/min (>60); Glucose 108 mg/dL (80-110); HEMOLYSIS < 15 (0-50); Potassium 3.4 mmol/L (3.4-5.1); Sodium 142 mmol/L (137-145)
[2022-09-22] MEDS: ENOXAPARIN 40 MG/0.4 ML SYRINGE SUBCUT (09:51)
[2022-09-22] MEDS: POTASSIUM CHLORIDE IN WATER 10 MEQ/100 ML PIGGYBACK 100 MEQ IV (09:51)
--- NOTE | 2022-09-22 11:00 | PC.NURSE ---
Addendum entered by Sharron Wilkinson R.N. 09/22/22 14:42: Patient has a total of 2 potassium riders iv, he tolerated these well as they were infused in at 75cc/hr. His iv was painful infusing at 100cc/hr. Original Note: Patients NG tube taken out and patient tolerated this well. He is now on clear liquids and denies nausea. Given iv dilaudid for discomfort and helpful. ML incision and smaller incisions open to air and all cdi.
--- NOTE | 2022-09-22 11:25 | CM.DPNOTE ---
DCP Note Reviewed chart. Patient w/suspected post operative ileus which seems to be resolving/resolved. NG tube has been removed per nursing and patient started on clear liquid diet CM team following; anticipate discharge home when medically cleared JW
--- NOTE | 2022-09-22 11:48 | PM.PNPO.1 ---
Subjective Subjective Date Patient Seen: 09/22/22 Time Patient Seen: 11:48 Interval history: +BM no major events Exam Vital Signs (past 8 hours): - 09/22/22 04:00 Temperature 97.6 F Pulse Rate 87 Respiratory Rate 16 Blood Pressure 118/68 Pulse Oximetry 91 Oxygen Flow Rate 0 Oxygen Delivery Method Room Air Oxygen Flow Rate 0 Narrative Exam Narrative: General adult man alert oriented no acute distress Abdomen soft appropriately tender to palpation. Incisions are clean dry intact with krzysztof. Objective Labs 09/22/22 05:15 09/22/22 05:15 Labs: Laboratory Results - last 24 hr 09/21/22 09/21/22 09/22/22 11:28 11:28 05:15 WBC 10.2 7.6 RBC 3.94 L 3.40 L Hgb 10.6 L 9.1 L Hct 31.5 L 27.6 L MCV 80.0 81.2 MCH 26.8 26.8 MCHC 33.5 33.0 RDW 16.7 H 16.9 H Plt Count 249 205 Neut % (Auto) 83.0 H 78.0 H Lymph % (Auto) 8.4 L 12.4 L [place] % (Auto) 7.4 7.3 Eos % (Auto) 0.7 L 2.0 Baso % (Auto) 0.5 0.3 Neut # (Auto) 8500 H 5900 Lymph # (Auto) 900 L 900 L [place] # (Auto) 800 600 Eos # (Auto) 100 100 Baso # (Auto) 100 0 Sodium 140 Potassium 3.0 L Chloride 100 Carbon Dioxide 35 H BUN 12 Creatinine 0.90 Estimated GFR > 60 BUN/Creatinine Ratio 13.3 Glucose 126 H Calcium 8.0 L 09/22/22 05:15 WBC RBC Hgb Hct MCV MCH MCHC RDW Plt Count Neut % (Auto) Lymph % (Auto) [place] % (Auto) Eos % (Auto) Baso % (Auto) Neut # (Auto) Lymph # (Auto) [place] # (Auto) Eos # (Auto) Baso # (Auto) Sodium 142 Potassium 3.4 Chloride 102 Carbon Dioxide 35 H BUN 11 Creatinine 0.86 Estimated GFR > 60 BUN/Creatinine Ratio 12.8 Glucose 108 Calcium 7.7 L [facility] Medical History (Updated 09/21/22 @ 15:56 by Carlos Berrios MD) GERD (gastroesophageal reflux disease) 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) Surgical History (Updated 09/13/22 @ 09:05 by Clara Blair RN) H/O gastrostomy, has currently (04/2022) Hx of colonoscopy (08/07/22) Family History (Updated 08/25/22 @ 23:56 by Margo Reyes MD) Brother Cancer Social History household members: spouse Smoking Status: Never smoker alcohol intake: current Assessment & Plan Post-op Postoperative Procedures: Procedures Operation Date: 09/19/22 07:45 Actual Procedure Side Surgeon p Laparoscopic Hemicolectomy with lysis of adhesions Right Carlos Berrios MD Postoperative status narrative: 67-year-old man postoperative day 3 status post right hemicolectomy for cancer. Has return of bowel function. -remove nasogastric tube -start clear liquid diet advance as tolerated Quality VTE Deep Vein Thrombosis/Pulmonary Embolism Present on Admission: No
[2022-09-22] MEDS: POTASSIUM CHLORIDE IN WATER 10 MEQ/100 ML PIGGYBACK 75 MEQ IV (12:09)
--- NOTE | 2022-09-22 21:00 | PC.NURSE ---
Pt reported abdominal pain and requested analgesics. Two norco 5/325 administered per orders.
[2022-09-22] MEDS: HYDROCODONE/ACET 5/325 TABLET 2 TAB PO (21:03)
--- NOTE | 2022-09-23 02:50 | PC.NURSE ---
Pt reported right sided abdominal pain. Two norco 5/325 admin per orders.
[2022-09-23 03:11] VITALS: BP 115/65; PULSE 67; O2SAT 91
[2022-09-23] MEDS: HYDROCODONE/ACET 5/325 TABLET 2 TAB PO (03:14)
[2022-09-23 03:21] VITALS: BP 115/65; PULSE 69; RESP 17; TEMP 36.3; O2SAT 93
[2022-09-23 05:21] LABS: BUN Creatinine Ratio 11.3 (6-22); Blood Urea Nitrogen 9 mg/dL (9-20); Calcium 7.6 mg/dL (8.4-10.2); Carbon Dioxide 30 mmol/L (22-32); Chloride 104 mmol/L (98-107); Estimated Glomerular Filt Rate > 60 mL/min (>60); Glucose 102 mg/dL (80-110); HEMOLYSIS < 15 (0-50); Potassium 3.4 mmol/L (3.4-5.1); Sodium 137 mmol/L (137-145)
[2022-09-23 08:33] VITALS: BP 110/60; PULSE 65; RESP 16; TEMP 35.8; O2SAT 92
[2022-09-23] MEDS: ENOXAPARIN 40 MG/0.4 ML SYRINGE SUBCUT (08:37)
--- NOTE | 2022-09-23 12:14 | PM.PN.1 ---
Subjective Subjective Date Patient Seen: 09/23/22 Time Patient Seen: 12:14 Interval history: Feeling well today with no nausea or vomiting. Passing gas and bowel movements. Pain is well controlled. Tolerating full liquid diet. Exam Vital Signs (past 8 hours): - 09/23/22 08:33 Temperature 96.5 F L Pulse Rate 65 Respiratory Rate 16 Blood Pressure 110/60 Pulse Oximetry 92 Oxygen Flow Rate 0 Oxygen Delivery Method Room Air Oxygen Flow Rate 0 Narrative Exam Narrative: Abdomen soft nontender Const General: comfortable Objective Labs 09/22/22 05:15 09/23/22 04:30 Labs: Laboratory Results - last 24 hr 09/23/22 04:30 Sodium 137 Potassium 3.4 Chloride 104 Carbon Dioxide 30 BUN 9 Creatinine 0.80 Estimated GFR > 60 BUN/Creatinine Ratio 11.3 Glucose 102 Calcium 7.6 L PFSH Medical History (Updated 09/21/22 @ 15:56 by Carlos Berrios MD) GERD (gastroesophageal reflux disease) 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
[2022-09-23 12:58] VITALS: BP 120/66; PULSE 69; RESP 17; TEMP 36.2; O2SAT 93
[2022-09-23] MEDS: HYDROCODONE/ACET 5/325 TABLET 1 TAB PO ×2 (15:07→20:46)
[2022-09-23 16:02] VITALS: BP 119/66; PULSE 66; RESP 18; TEMP 36.9; O2SAT 93
[2022-09-23 20:00] VITALS: BP 115/65; PULSE 66; RESP 18; TEMP 36.2; O2SAT 96
[2022-09-24] MEDS: HYDROCODONE/ACET 5/325 TABLET 1 TAB PO (00:08)
[2022-09-24] MEDS: HYDROCODONE/ACET 5/325 TABLET 2 TAB PO (08:16)
[2022-09-24] MEDS: ENOXAPARIN 40 MG/0.4 ML SYRINGE SUBCUT (08:16)
--- NOTE | 2022-09-24 09:11 | PM.DS.1 ---
History of Present Illness History of Present Illness Chief complaint: Right Lap Hemicolectomy Narrative: Bo is a 67-year-old man with a right colon mass. See the office note for details. Path came back as high-grade dysplasia but there is concern for invasive adenocarcinoma. 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 He has had an endoscopic cyst gastrostomy. He is here for his right hemicolectomy. Discharge Providers Provider Date of admission: 09/19/22 06:12 Discharge Date: 09/24/22 Primary care physician: ALYSSA Bacon Discharge provider: Carlos Berrios MD Summary Hospital Course Discharge Diagnosis: Right colon mass Hospital Course: The patient underwent a laparoscopic-assisted right hemicolectomy on September 19, 2022. He tolerated the procedure well. He had a ileus for a brief period of time but recovered well and his diet was advanced to regular. 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 Hardin will be removed at your follow-up visit. Discharge orders & Medications Prescriptions: New hydrocodone-acetaminophen 5-325 mg tablet 1 tab PO Q8H PRN (Reason: pain) Qty: 14 0RF Follow up/Referrals: Lacey Garcia ARNP [Primary Care Provider] - Visit Report/Discharge Packet Stand Alone Forms: Patient Portal/API, Stroke Signs & Symptoms Discharge Data Primary Care Provider: Garcia,Lacey S Quality VTE Deep Vein Thrombosis/Pulmonary Embolism Present on Admission: No
== END 2022-09-24 09:45 | disposition home or self-care (01) | DRG 330 ==
LOC: AC 10:15 → ICU 11:04
PROVIDERS: Admitting Provider Surgery; PCP Nurse Practitioner; Referring Provider Surgery; Visit Provider Surgery
PROC: 0DTE0ZZ Resection of Large Intestine, Open Approach (ICD-10-PCS; principal; 2022-09-19 07:45)
DX: D12.0 Benign neoplasm of cecum (principal); K56.7 Ileus, unspecified; K91.89 Other postprocedural complications and disorders of digestive system; Z20.822 Contact with and (suspected) exposure to COVID-19
CPT/HCPCS: 36415; 44205; 47000; 74018; 80048; 85025; 87797; C9290; J0131; J0171; J0295; J1100; J1170; J1650; J1885; J2250; J2405; J2704; J2765; J3010; J3490

== ENCOUNTER 2022-10-09 11:23 | Day surgery (SDC) | payer MEDICARE, OTHER, SELFPAY ==
[2022-09-19 06:54] VITALS: BMI 27.8
[2022-10-04 08:24] VITALS: BMI 27.8
[2022-10-09 11:59] VITALS: BP 106/68; PULSE 59; RESP 16; TEMP 36.6; O2SAT 95; BMI 27.8
[2022-10-09] MEDS: LACTATED RINGERS 1,000 ML 84 ML IV (12:12)
--- NOTE | 2022-10-09 12:13 | PM.PREOP ---
Pre-operative Note COVID-19 COVID-19 status: Not tested Interval Note History & Physical reviewed/Exam performed by Physician: Yes Changes to H&P: No ASA Class (for procedural sedation): III
[2022-10-09] MEDS: CEFAZOLIN 2 GM/100 ML PREMIX 100 ML IV (13:25)
--- NOTE | 2022-10-09 13:33 | SUR.OPER ---
Supine on padded OR bed, head on pillow, arms padded and tucked at sides, legs uncrossed, safety belt at thigh, tape over blanket over lower legs .
[2022-10-09] MEDS: LIDOCAINE 1% 20 ML, EPINEPHrine 0.2 MG INJ (13:42)
--- NOTE | 2022-10-09 14:02 | DI.RAD.S_ITS ---
PROCEDURE: XR CHEST 1V INDICATIONS: INNER OP PICTURES TECHNIQUE: One view of the chest was acquired. COMPARISON: None. FINDINGS: Intraoperative fluoroscopic images demonstrate a right tunneled port device is visualized with the distal tip projecting near the cavoatrial junction. IMPRESSION: Intraoperative fluoroscopic support for right tunneled port device. Please see separate procedure note for further details. Dictated by: Mo Anaya M.D. on 10/09/2022 at 16:59 Approved by: Mo Anaya M.D. on 10/09/2022 at 17:02
[2022-10-09 14:07] VITALS: BP 125/73; PULSE 71; RESP 17; TEMP 36.4; O2SAT 96
--- NOTE | 2022-10-09 14:11 | PM.OP.1 ---
Operative Date/Time/Diagnoses Date of procedure: 10/09/22 Time of procedure: 14:11 Pre-op diagnosis: Colon cancer Post-op diagnosis: same Procedure & Clinicians Procedure: Port-A-Cath Same procedure as scheduled: Yes Surgeon: Carlos Berrios Anesthesia Type: General Operative Notes Procedure in detail: The patient was brought to the operating room, placed on the table in the supine position with the arms tucked. Ancef was administered. Anesthesia was induced via LMA. A time-out was performed. The right chest and neck were prepped and draped in the usual fashion. An ultrasound was used to identify the right internal jugular vein. The vein was noted to be patent. An image was saved and printed and placed in the chart. The right internal jugular vein was accessed via the Seldinger technique under ultrasound guidance. The guidewire was inserted into the superior vena cava. C-arm was used to confirm proper position of the guidewire in the superior vena cava and no ectopy was noted. The needle was removed and the wire was clamped to the drape. Next, a port pocket was created just inferior to the medial clavicle using a 15 blade scalpel. Dissection was carried down to the pectoral fascia. A subcutaneous pocket was created using a combination of cautery and blunt dissection. Next, the port which was primed with injectable saline, was secured to the fascia with 3-0 PDS sutures left untied and clamped. The neck incision was extended with an 11 blade scalpel to approximately 5 mm. The dilator and peel-away sheath were inserted over the wire without resistance. The catheter was passed from the neck incision to the chest incision in the subcutaneous tissue using the tunnelling device. The wire and dilator were then removed and the catheter inserted through the peel-away sheath to deliver it into the superior vena cava. The depth of the device was checked using the C-arm and the tip of the device was noted to be in the distal superior vena cava. The exterior portion of the catheter was then trimmed and attached to the port using the strain relief collar. A final image showed good position of the catheter with no kinks. The port was then tucked into the subcutaneous pocket and the sutures were tied to secure the device. The port was then accessed using the Jiménez needle and it was noted that the device perla and flushed easily without resistance. Approximately 4 mL of heparinized saline were injected into the device. The skin incisions were closed with 3-0 Vicryl and 4-0 Monocryl. Steri-Strips were applied patient was awakened and brought to recovery room EBL: 5 mL Ultrasound: The right internal jugular vein was patent. The right carotid artery was visualized adjacent to the vein. Venipuncture was visualized in real-time using the ultrasound. Fluoroscopy: The device was positioned appropriately with the distal end of the catheter near the atriocaval junction. There were no kinks in the catheter. Post-operative Condition: stable Disposition: PACU
[2022-10-09 14:12] VITALS: BP 118/77; PULSE 71; RESP 13; O2SAT 97
[2022-10-09 14:17] VITALS: BP 124/71; PULSE 63; RESP 17; O2SAT 99
[2022-10-09 14:22] VITALS: BP 120/75; PULSE 60; RESP 17; TEMP 36.6; O2SAT 99
[2022-10-09 14:29] VITALS: BP 115/70; PULSE 61; RESP 14; O2SAT 99
--- NOTE | 2022-10-09 14:30 | DI.RAD.S_ITS ---
PROCEDURE: XR CHEST 1V INDICATIONS: POST OP CHEST (PORTACATH) TECHNIQUE: One view of the chest was acquired. COMPARISON: [facility], , XR CHEST 1V, 10/09/2022, 13:31. FINDINGS: Surgical changes and devices: Right chest wall port catheter, tip of which is at the cavoatrial junction. Lungs and pleura: Lungs are clear. No pleural effusions or pneumothorax. Mediastinum: Mediastinal contours appear normal. Heart size is normal. Bones and chest wall: No suspicious bony lesions. Overlying soft tissues appear unremarkable. IMPRESSION: No acute process. Dictated by: Yifan Fernandez M.D. on 10/09/2022 at 15:46 Approved by: Yifan Fernandez M.D. on 10/09/2022 at 15:47
== END 2022-10-09 14:56 | disposition home or self-care (01) ==
PROVIDERS: PCP Nurse Practitioner; Referring Provider Surgery; Visit Provider Surgery
PROC: (CPT 36561; principal; 2022-10-09 13:00)
DX: C18.9 Malignant neoplasm of colon, unspecified (principal)
CPT/HCPCS: 36561; 71045; 76000; C1788; J0171; J0690; J1100; J1644; J2250; J2405; J2704; J3010